=== PATIENT | female | born 1980 | race Caucasian/White ===

== ENCOUNTER 2021-02-13 05:58 | Emergency (ER) | payer OTHER ==
[2021-02-13] MEDS ORDERED: SODIUM CHLORIDE 0.9% 1,000 ML IV STA (06:24)
--- NOTE | 2021-02-13 06:24 | ED Physician Documentation ---
PD HPI ABD PAIN - Stated complaint Stated Complaint: CHEST/BACK PX - Chief complaint Chief Complaint: Cardiac PD PAST MEDICAL HISTORY - Past Medical History Past Medical History: No - Past Surgical History Past Surgical History: No - Present Medications Home Medications: Ambulatory Orders Medication Instructions Recorded Confirmed No Known Home Medications 11/01/15 11/01/15 - Allergies Allergies/Adverse Reactions: Allergies Allergy/AdvReac Type Severity Reaction Status Date / Time No Known Drug Allergies Allergy Verified 11/01/15 20:55 - Social History Does the pt smoke?: No Smoking Status: Never smoker - Immunizations Immunizations are current?: Yes Immunizations: TDAP current <10years Results - Vitals Vitals: Vital Signs - 24 hr 02/13/21 02/13/21 06:04 06:13 Temperature 36.8 C Heart Rate 79 74 Respiratory 18 20 Rate Blood Pressure 139/82 H O2 Saturation 99 99 Oxygen O2 Source Room air
[2021-02-13] MEDS ORDERED: ONDANSETRON 4 MG/2 ML VIAL IVP STA (06:25)
[2021-02-13] MEDS ORDERED: KETOROLAC 30 MG/ML VIAL IVP STA (06:25)
[2021-02-13 06:40] LABS: BASOPHILS % (AUTO) 0.2 %; EOSINOPHILS % (AUTO) 0.1 %; HCT - HEMATOCRIT 40.5 % (37.0-47.0); HGB - HEMOGLOBIN 13.9 g/dL (12.0-16.0); LYMPHOCYTES # (AUTO) 0.8 10^3/uL (1.5-3.5); LYMPHOCYTES % (AUTO) 9.8 %; MEAN CORPUSCULAR HEMOGLOBIN 30.5 pg (27.0-31.0); MEAN CORPUSCULAR HGB CONC 34.3 g/dL (32.0-36.0); MEAN PLATELET VOLUME 8.9 fL (7.9-10.8); MONOCYTES # (AUTO) 0.2 10^3/uL (0.0-1.0); MONOCYTES % (AUTO) 2.7 %; NEUTROPHILS % (AUTO) 86.7 %; PLT - PLATELET COUNT 260 10^3/uL (130-450); RED BLOOD COUNT 4.55 10^6/uL (4.20-5.40); RED CELL DISTRIBUTION WIDTH 12.5 % (12.0-15.0); WHITE BLOOD COUNT 8.1 x10^3/uL (4.8-10.8)
[2021-02-13 06:52] LABS: ALBUMIN 4.9 g/dL (3.2-5.5); ALBUMIN/GLOBULIN RATIO 1.5 (1.0-2.2); BILIRUBIN,TOTAL 0.4 mg/dL (0.2-1.0); CALCIUM 9.5 mg/dL (8.5-10.3); CREATININE 0.6 mg/dL (0.4-1.0); POTASSIUM 4.1 mmol/L (3.5-5.0); TOTAL PROTEIN 8.2 g/dL (6.7-8.2)
[2021-02-13] MEDS ORDERED: HYDROmorphone 1 MG/ML CARPUJECT IVP STA (06:52)
--- NOTE | 2021-02-13 07:05 | ED Physician Documentation ---
PD HPI ABD PAIN - Stated complaint Stated Complaint: CHEST/BACK PX - Chief complaint Chief Complaint: Cardiac - History obtained from History obtained from: Patient - History of Present Illness Timing - onset: How many hours ago, Today (few hours ago) Timing - details: Abrupt onset, Still present (lessened but not resolved; still hurting moderately.) Quality: Cramping, Aching, Pain Location: RUQ, Epigastric Improved by: No: Laying still Worsened by: No: Moving, Breathing Associated symptoms: Nausea. No: Fever, Vomiting, Diarrhea Similar symptoms before: No diagnosis (has had this milder and lasting just 20- 30 minutes at a time several times in the past 10d ays.) Recently seen: Not recently seen Review of Systems Constitutional: denies: Fever, Chills Nose: denies: Rhinorrhea / runny nose, Congestion Throat: denies: Sore throat Respiratory: denies: Cough GI: reports: Abdominal Pain, Nausea. denies: Vomiting, Diarrhea Skin: denies: Rash, Lesions Musculoskeletal: denies: Back pain Neurologic: denies: Generalized weakness PD PAST MEDICAL HISTORY - Past Medical History Past Medical History: No - Past Surgical History Past Surgical History: No - Present Medications Home Medications: Ambulatory Orders Medication Instructions Recorded Confirmed Dicyclomine [Bentyl] 10 mg PO QID PRN #20 cap 02/13/21 HYDROcod/ACETAM 5/325 [[place] 5/325] 1 ea PO Q6H PRN #10 tablet 02/13/21 Ondansetron Odt [Zofran] 4 mg TL Q6H PRN #10 tablet 02/13/21 - Allergies Allergies/Adverse Reactions: Allergies Allergy/AdvReac Type Severity Reaction Status Date / Time No Known Drug Allergies Allergy Verified 11/01/15 20:55 - Social History Does the pt smoke?: No Smoking Status: Never smoker - Immunizations Immunizations are current?: Yes Immunizations: TDAP current <10years PD ED PE NORMAL - Vitals Vital signs reviewed: Yes - General General: Alert and oriented X 3, Well developed/nourished, Other (does appear moderately uncomfortable. ) - HEENT HEENT: Pharynx benign - Neck Neck: Supple, no meningeal sign, No adenopathy - Cardiac Cardiac: RRR, No murmur - Respiratory Respiratory: Clear bilaterally - Abdomen Abdomen: Normal bowel sounds, Soft, Non distended, No organomegaly, Other (tender epigastric to RUQ area. with some local guarding. No percussion tenderness. ) - Back Back: No CVA TTP - Derm Derm: Normal color, Warm and dry - Extremities Extremities: No edema, No calf tenderness / cord Results - Vitals Vitals: Vital Signs - 24 hr 02/13/21 02/13/21 02/13/21 06:04 06:13 08:12 Temperature 36.8 C 36.8 C Heart Rate 79 74 72 Respiratory 18 20 16 Rate Blood Pressure 139/82 H 105/58 L O2 Saturation 99 99 97 Oxygen O2 Source Room air - EKG (time done) 06:01 Rate: Rate (enter#) (74) Rhythm: NSR [place]: Normal Intervals: Normal [place] QRS: Normal Ischemia: Normal ST segments. No: ST elevation c/w ischemia, ST depression - Labs Labs: Laboratory Tests 02/13/21 02/13/21 06:30 06:30 WBC 8.1 RBC 4.55 Hgb 13.9 Hct 40.5 MCV 89.0 MCH 30.5 MCHC 34.3 RDW 12.5 Plt Count 260 MPV 8.9 Neut # (Auto) 7.0 H Lymph # (Auto) 0.8 L Wilkes # (Auto) 0.2 Eos # (Auto) 0.0 Baso # (Auto) 0.0 Absolute Nucleated RBC 0.00 Nucleated RBC % 0.0 Sodium 134 L Potassium 4.1 Chloride 103 Carbon Dioxide 23 Anion Gap 8.0 BUN 20 Creatinine 0.6 Estimated GFR (MDRD) 110 Glucose 164 H Calcium 9.5 Total Bilirubin 0.4 AST 21 ALT 19 Alkaline Phosphatase 46 Total Protein 8.2 Albumin 4.9 Globulin 3.3 Albumin/Globulin Ratio 1.5 Lipase 31 - Rads (name of study) RUQ U/S Radiology: Prelim report reviewed (large gallstone in GB neck 2.4 cm, nonmobile. No distension of GB, nor any wall thickening. ), See rad report PD MEDICAL DECISION MAKING - ED course Complexity details: reviewed results, re-evaluated patient (feeling better with meds. ), considered differential (seems like biliary colic and U/S showing stone in neck. No acute cholecystitis. Presume will be recurrent symptoms so will refer to surgery for consultation/consideration of CCY. ), d/w patient Departure - Departure Disposition: 01 Home, Self Care Clinical Impression: Acute upper abdominal pain, Biliary colic Condition: Stable Record reviewed to determine appropriate education?: Yes Instructions: ED Gallstone W Biliary Colic Follow-Up: [facility] [Provider Group] Carter Milner MD [Provider Admit Priv/Credential] - Jenaro Golden MD [Provider Admit Priv/Credential] - Prescriptions: Dicyclomine [Bentyl] 10 mg PO QID PRN #20 cap PRN Reason: Abdominal Pain HYDROcod/ACETAM 5/325 [[place] 5/325] 1 ea PO Q6H PRN #10 tablet PRN Reason: Pain Ondansetron Odt [Zofran] 4 mg TL Q6H PRN #10 tablet PRN Reason: Nausea / Vomiting Comments: Low-fat diet generally. [place] food through the day today. You can use some anti-inflammatory such as ibuprofen or naproxen periodically today. Add Tylenol if needed for pain. You can use dicyclomine antispasmodic every 6 hours as needed for pain, in particular for the worse episodes if you get them. Add ondansetron if needed for nausea. Add hydrocodone if needed for worse pain or persistent despite some dicyclomine and ibuprofen. These would be for the acute pain episodes. In general with the gallstone in the neck, its likely predictable that these episodes can occur periodically. Call one of the surgeons name provided for a follow-up appointment to discuss potential gallbladder surgery. Use the pain medicines if needed for episodes. Return to the ER if significant pain despite the above treatments. Discharge Date/Time: 02/13/21 08:46
[2021-02-13 08:13] VITALS: BP 105/58
--- NOTE | 2021-02-13 08:17 | Ultrasound Report ---
PROCEDURE: Abdomen Limited INDICATIONS: abdominal pain TECHNIQUE: Real-time focused scanning was performed of the abdomen, with image documentation. COMPARISON: None FINDINGS: Limited study at clinician request. The liver is normal in length and is echogenic consist ent with fatty infiltration. No biliary distention is seen within the liver. The gallbladder contains a large stone measuring at least 62.4 cm in maximal dimension. The common bile duct is normal in jeanette iber at 3.3 mm. The pancreas visualized is normal as is the right kidney. IMPRESSION: Fatty infiltration within the liver but no focal liver lesion is seen. Moderately large gallstones wi thin the gallbladder neck area, measuring up to 2.4 cm. No biliary distention is associated. The gall stone did not appear mobile within the gallbladder lumen. Reviewed by: Brett Trevino MD on 02/13/2021 8:15 AM PDT Approved by: Brett Trevino MD on 02/13/2021 8:15 AM PDT Station ID: [id number]
[2021-02-13] MEDS ORDERED: DICYCLOMINE 10 MG CAPSULE PO STA (08:25)
== END 2021-02-13 08:46 | disposition home or self-care (01) ==
LOC: ED 05:58
DX: K80.20 Calculus of gallbladder without cholecystitis without obstruction (principal); K76.0 Fatty (change of) liver, not elsewhere classified; R07.9 Chest pain, unspecified
CPT/HCPCS: 36415; 76705; 80053; 83690; 85025; 93005; 96374; 96375; 99284; A9270; J1170

== ENCOUNTER 2021-02-22 12:40 | Day surgery (SDC) | payer OTHER ==
[~2021-02-22 12:40] MED LIST: BUPIVACAINE 0.25% PF 10 ML VIAL ONE
[2021-02-22] MEDS ORDERED: DEXAMETHASONE 4 MG/ML VIAL ONE (13:00)
[2021-02-22] MEDS ORDERED: ONDANSETRON 4 MG/2 ML VIAL ONE ×2 (13:00→18:17)
[2021-02-22] MEDS ORDERED: LIDOCAINE-MPF 2% 5 ML VIAL ONE (13:00)
[2021-02-22] MEDS ORDERED: MIDAZOLAM 2 MG/2 ML VIAL ONE (13:00)
[2021-02-22] MEDS ORDERED: PROPOFOL 200 MG/20 ML VIAL IVP ONE (13:00)
[2021-02-22] MEDS ORDERED: LACTATED RINGERS 1,000 ML IV ONE (13:00)
[2021-02-22] MEDS ORDERED: fentaNYL 100 MCG/2 ML VIAL ONE ×2 (13:01→15:25)
[2021-02-22] MEDS ORDERED: ROCURONIUM 50 MG/5 ML VIAL ONE (13:03)
[2021-02-22 13:20] LABS: HCG UR QUAL NEGATIVE
[2021-02-22] MEDS ORDERED: ceFAZolin 2 GM/50 ML 2 GM/50 ML BAG IV ONE (13:26)
--- NOTE | 2021-02-22 13:27 | ANESTHESIA ---
Pre-Anesthesia VS, & Labs - Diagnosis chronic cholecystitis, cholelithiasis with obstruction - Procedure laparoscopic cholecystectomy Vital Signs: Temp Pulse Resp BP Pulse Ox 37.5 C 108 H 12 139/93 H 98 02/22/21 13:02 02/22/21 13:02 02/22/21 13:02 02/22/21 13:02 02/22/21 13:02 Height: 5 ft 9 in Weight (kg): 81 kg Body Mass Index: 26.4 BMI Classification: Overweight - NPO >8 hours - Is Patient ?: No - Lab Results Lab results reviewed: Yes Home Medications and Allergies Home Medications: Ambulatory Orders Acetaminophen [Tylenol] 650 mg PO Q6H PRN 02/20/21 Dicyclomine [Bentyl] 20 mg PO QID PRN 02/20/21 Ibuprofen [Motrin] 600 mg PO Q6H PRN 02/20/21 Acetaminophen [Tylenol] 650 mg PO Q6H PRN 02/20/21 Dicyclomine [Bentyl] 20 mg PO QID PRN 02/20/21 Ibuprofen [Motrin] 600 mg PO Q6H PRN 02/20/21 Allergies/Adverse Reactions: Allergies Allergy/AdvReac Type Severity Reaction Status Date / Time No Known Drug Allergies Allergy Verified 11/01/15 20:55 Anes History & Medical History - Anesthetic History Anesthesia Complications: reports: No previous complications Family history of Anesthesia Complications: Denies Family history of Malignant Hyperthermia: Denies - Medical History Cardiovascular: reports: None Pulmonary: reports: None Gastrointestinal: reports: Cholelithiasis Urinary: reports: None Musculoskeletal: reports: Osteoarthritis, Chronic back pain Endocrine/Autoimmune: reports: None Skin: reports: None Smoking Status: Never smoker Psychosocial: reports: Cannabis (nightly) Exam General: Alert, Oriented x3, Cooperative, No acute distress Dental: WNL Mouth Openin Fingerbreadth Neck Mobility: Normal Mallampati classification: II Respiratory: Lungs clear, Normal breath sounds, No respiratory distress Cardiovascular: Regular rate, Normal S1, Normal S2, No murmurs Plan Anesthesia Type: General Consent for Procedure(s) Verified and Reviewed: Yes Code Status: Attempt Resuscitation ASA classification: 2-Mild systemic disease Is this case an emergency?: No
[2021-02-22] MEDS ORDERED: ATROPINE ABBOJECT 1 MG/10 ML SYRINGE IVP PRN (13:42)
[2021-02-22] MEDS ORDERED: fentaNYL 100 MCG/2 ML VIAL IVP PRN (13:42)
[2021-02-22] MEDS ORDERED: ONDANSETRON 4 MG/2 ML VIAL IVP PRN ×2 (13:42→17:24)
[2021-02-22] MEDS ORDERED: MORPHINE 2 MG/ML CARPUJECT IVP PRN (13:42)
[2021-02-22] MEDS ORDERED: ePHEDrine 50 MG/ML VIAL IVP PRN (13:42)
[2021-02-22] MEDS ORDERED: HYDROmorphone 0.5 MG/0.5 ML SYRINGE IVP PRN (13:42)
[2021-02-22] MEDS ORDERED: NALOXONE 0.4 MG/ML VIAL IVP PRN (13:42)
[2021-02-22] MEDS ORDERED: METOCLOPRAMIDE 10 MG/2 ML VIAL IVP PRN (13:42)
[2021-02-22] MEDS ORDERED: LACTATED RINGERS 1,000 ML IV SCH (14:00)
[2021-02-22] MEDS ORDERED: BUPIVACAINE 0.25% PF 30 ML VIAL SUBQ ONE (15:16)
[2021-02-22] MEDS ORDERED: NEOSTIGMINE 1 MG/1 ML 10 ML MDV ONE (16:33)
[2021-02-22] MEDS ORDERED: GLYCOPYRROLATE 1 MG/5 ML VIAL ONE (16:33)
[2021-02-22] MEDS ORDERED: LACTATED RINGERS 400 ML IV ONE (17:10)
[2021-02-22] MEDS ORDERED: HYDROcod/ACETAM 5/325 MG TABLET PO PRN (17:24)
--- NOTE | 2021-02-22 17:30 | OPERATIVE REPORT ---
Operative Report - General Procedure Date: 02/22/21 Planned Procedure: laparoscopic cholecystectomy Pre-Op Diagnosis: chronic cholecystitis Procedure Performed: laparoscopic cholecystectomy extra degree difficulty Post Op Diagnosis: chronic cholecystitis - Procedure Note Primary Surgeon: davon eugene Anesthesia Technique: General ET tube, Local Pathology: gallbladder Estimated Blood Loss (mL): 15 Drain/Tube Type: Other (none) Indications: chronic cholecystitis Findings: very thickened and scarred gallbladder to the common bile duct large obstructing gallstone Complications: none - Other Other Information/Narrative: The patient was properly identified, brought to the operating room and placed in supine position. Sequential compression devices were placed. General endotracheal anesthesia was induced. The patient was prepped and draped in a sterile fashion and given preoperative antibiotics. Local anesthetic was given to incision areas. An incision was made in the periumbilical area. Dissection proceeded down to fascia. The fascia was incised lifted upwards and abdomen entered with a Veress needle. CO2 was insufflated to a pressure of 15. An 11 mm trocar followed by a 30 degree scope was placed. There was no evidence of injury from Veress needle or trocar placement. Under direct vision 2 5 mm trochars were placed in the right upper quadrant and an 11 mm trocar was placed in the epigastrium. Body of the gallbladder was retracted anterior. Lateral attachments were partially taken down further mobilizing the gallbladder more anterior and away from the duodenum. The infundibulum of the gallbladder was then retracted right lateral and caudad. The gallbladder was very thickened. A very large obstructing gallstone was present. The gallbadder was distended and scarred to the common hepatic duct nearly 4 cm length. The cystic duct and artery were both very narrow and short no more than 2 cm. Over an hours time was spent freeing the gallbadder from the common bile duct and developing a plan between the cyst duct and cystic artery. With minimal use of cautery a large bare cystic plate area or window was carefully and eventually created. The cystic duct was inspected from right lateral and left lateral positions. [] The cystic duct was then clipped at the gallbladder and 3 times slightly proximal and sharply divided. The cystic artery was clipped at the gallbladder and then 2 times slightly proximal and sharply divided. The gallbladder was mobilized off from the bed of the liver with hook cautery. The gallbladder was placed in Endo Catch bag and brought out through the epigastric trocar site. This site was enlarged to allow extraction. Hemostasis was assured. Abdomen was irrigated. Trochars were removed under direct vision. Fascia at the larger trocar sites was closed with [id number] are running 0 Vicryl suture. Subcutaneous tissue was irrigated and skin closed with interrupted 4-0 Monocryl. Dressings were applied. Patient tolerated the procedure well was awakened and brought to recovery in good condition.
--- NOTE | 2021-02-22 17:33 | ANESTHESIA POST OP EVALUATION ---
Anesthesia Post Eval - Post Anesthesia Eval Vitals: Last Vital Signs Temp 37.6 C 02/22/21 17:32 Pulse 79 02/22/21 17:32 Resp 16 02/22/21 17:32 BP 123/78 02/22/21 17:32 Pulse Ox 100 02/22/21 17:32 CV Function Including HR & BP: Stable Pain Control: Satisfactory Nausea & Vomiting: Negative Mental Status: Baseline Respiratory Status: Airway Patent Hydration Status: Satisfactory Anesthesia Complications: None
[2021-02-22] MEDS ORDERED: HYDROcod/ACETAM 5/325 MG TABLET ONE (17:48)
[2021-02-22 18:08] VITALS: BP 126/76
== END 2021-02-22 12:41 | disposition home or self-care (01) ==
LOC: SDS 12:40
PROVIDERS: ATTEND Surgery
PROC: 0FT44ZZ Resection of Gallbladder, Percutaneous Endoscopic Approach (ICD-10-PCS; principal; 2021-02-22 14:00)
DX: K80.11 Calculus of gallbladder with chronic cholecystitis with obstruction (principal); K82.8 Other specified diseases of gallbladder; Z20.822 Contact with and (suspected) exposure to COVID-19; Z72.89 Other problems related to lifestyle
CPT/HCPCS: 47562; 81025; 87635; A9270; J0690; J7120

== ENCOUNTER 2021-08-23 09:36 | Outpatient (CLI) | payer OTHER ==
--- NOTE | 2021-08-24 12:30 | Mammography Report ---
BILATERAL DIGITAL SCREENING MAMMOGRAM 3D/2D: 08/23/2021 CLINICAL: Baseline exam. Routine screening. No prior exams were available for comparison. The tissue of both breasts is heterogeneously dense. T his may lower the sensitivity of mammography. There are benign calcifications in both breasts. No significant masses, calcifications, or other findings are seen in either breast. IMPRESSION: BENIGN There is no mammographic evidence of malignancy. A 1 year screening mammogram is recommended. This exam was interpreted at Station ID: [id number]. NOTE: For mammograms, a report in lay terms will be sent to the patient. Approximately 15% of breast malignancies will not be visualized mammographically. In the management of a palpable breast mass, a negative mammogram must not discourage biopsy of a clinically suspicious lesion. Electronically Signed By: Familia Riggs acr/penrad:08/23/2021 10:19:12 ACR BI-RADS Category 2: Benign Finding(s) 3342F PARENCHYMAL PATTERN: (D) - The breast(s) demonstrate(s) heterogeneously dense fibroglandular aureliano ocampo. BI-RADS CATEGORY: (2) - 2 RECOMMENDATION: (ANNUAL) - Recommend routine annual screening mammography. [id number] 1 year screening LATERALITY: (B)
== END 2021-08-23 09:37 | disposition home or self-care (01) ==
LOC: DI.N 09:36
DX: Z12.31 Encounter for screening mammogram for malignant neoplasm of breast (principal)